=== PATIENT | male | born 1945 | race Caucasian/White ===

== ENCOUNTER → 2018-12-19 | Outpatient (CLI) | payer MEDICARE ==
--- NOTE | 2018-12-19 10:09 | ECHOF ---
Referral Reason:R00.2 Palpitations MEASUREMENTS -------- HEIGHT: 175.3 cm WEIGHT: 77.6 kg BP: RVIDd: 2.5 cm (< 3.3) IVSd: 1.2 cm (0.6 - 1.1) LVIDd: 3.7 cm (3.9 - 5.3) LVPWd: 1.5 cm (0.6 - 1.1) IVSs: 1.7 cm LVIDs: 2.1 cm LVPWs: 1.6 cm LAESV Index (A-L): 24.90 ml/m Ao Diam: 3.9 cm (2.0 - 3.7) AV Cusp: 2.4 cm (1.5 - 2.6) LA Diam: 4.1 cm (2.7 - 3.8) MV EXCURSION: 11.106 mm (> 18.000) MV EF SLOPE: 28 mm/s (70 - 150) EPSS: 1.4 cm MV E Julian: 0.43 m/s MV DecT: 306 ms MV A Julian: 0.80 m/s MV E/A Ratio: 0.54 AR PHT: 799 ms RAP: 5.00 mmHg RVSP: 26.90 mmHg FINDINGS -------- Sinus rhythm. This was a technically good study. The left ventricular size is normal. There is mild concentric left ventricular hypertrophy. Overa ll left ventricular systolic function is normal with, an EF between 55 - 60 %. The right ventricle is normal in size and function. Normal LA size by volume 22+/-6 ml/m2. The right atrium is normal in size. Aortic valve is trileaflet and is mildly thickened. There is mild aortic regurgitation. There is trace mitral regurgitation. Trace tricuspid regurgitation present. The right ventricular systolic pressure, as measured by Dopp ler, is 26.90mmHg. Trace/mild (physiologic) pulmonic regurgitation. The aortic root is mildy dilated. The pericardium is normal. CONCLUSIONS -------- 1. Sinus rhythm. 2. This was a technically good study. 3. The left ventricular size is normal. 4. There is mild concentric left ventricular hypertrophy. 5. Overall left ventricular systolic function is normal with, an EF between 55 - 60 %. 6. The right ventricle is normal in size and function. 7. Normal LA size by volume 22+/-6 ml/m2. 8. The right atrium is normal in size. 9. Aortic valve is trileaflet and is mildly thickened. 10. There is mild aortic regurgitation. 11. There is trace mitral regurgitation. 12. Trace tricuspid regurgitation present. 13. The right ventricular systolic pressure, as measured by Doppler, is 26.90mmHg. 14. Trace/mild (physiologic) pulmonic regurgitation. 15. The aortic root is mildy dilated. 16. The pericardium is normal. HIGH SCHOOL SCIENCE TEACHER: Sara Townsend RDCS
--- NOTE | 2018-12-19 12:17 | EST ---
EXERCISE STRESS AGE: 73 SEX: M HT: 5'9" WT: 171 PROTOCOL: Cardiolite Giovanni Stress Test STAGE: III DURATION OF EXERCISE: 10:17 HEART RATE REST: 60 BLOOD PRESSURE REST: 159/96 MAXIMUM HEART RATE ACHIEVED: 124 MAXIMUM BLOOD PRESSURE: 202/92 85% MPHR: 125 100% MPHR: 147 METS: 9.1 INDICATIONS: Palpitations. CLINICAL INFORMATION: Baseline heart rate is 60 beats per minute. Baseline blood pressure elevated 159/96 mmHg. Baseline 12-lead ECG shows normal sinus rhythm with normal cardiac intervals and appear interval is mildly prolonged. The patient exercised on Giovanni protocol for 10 minutes 17 seconds achieving a peak heart rate of 120 beats per minute, hypertensive response to exercise. Peak blood pressure 202/92 mmHg. He did not complain of chest pain but complained of shortness of breath and tiredness. PVCs were noted during exercise. However, significant horizontal downsloping ST depressions were noted at peak exercise, almost [address]- depression noted. PVCs were noted at recovery and there was a gradual improvement in ST depression. However, it took greater than 4-5 minutes to resolve. IMPRESSION: Abnormal stress test consistent with ischemia and premature ventricular contractions with exercise. Nuclear portion of the stress test will be reported separately. This result was communicated to Dr. Breonna Irvin. MMJERRYL / IJN: [id number] /
--- NOTE | 2018-12-19 13:24 | NM ---
EXAMINATION TYPE: NM stress cardiolite complete DATE OF EXAM: 12/19/2018 COMPARISON: NONE HISTORY: TECHNIQUE: After the intravenous administration of 10.16 mCi Tc 99m Sestamibi - Rest images obtained 45 minutes post injection. The patient exercised using a LEONA protocol and 1 minute prior to peak exercise was injected with 24.7 mCi Tc 99m Sestamibi - Stress images obtained 15 minutes post inject ion. FINDINGS: Targeted heart rate was achieved during performance of the study. Review of stress and rest SPECT lola ges demonstrates no distinct perfusion abnormality. Gated analysis shows normal wall motion with an estimated left ventricular ejection fraction of 68 %. IMPRESSION: No scintigraphic evidence for reversible ischemia
== END | disposition home or self-care (01) ==
LOC: RADNMMAIN 07:57
PROVIDERS: ATTEND Family Medicine
DX: I35.1 Nonrheumatic aortic (valve) insufficiency (principal); I51.7 Cardiomegaly; R94.39 Abnormal result of other cardiovascular function study
CPT/HCPCS: 93017; 93306; 78452; A9500

== ENCOUNTER 2018-12-27 10:43 | Day surgery (SDC) | payer MEDICARE ==
[2018-12-26 10:43] VITALS: BMI 25.2
[~2018-12-27 10:43] MED LIST: ALPRAZolam 0.25 MG TAB PO PRN; ALPRAZolam 0.5 MG TAB PO PRN; ASPIRIN 325 MG TAB PO STA; ATORVASTATIN 80 MG TAB PO STA; NITROGLYCERIN SL TABS 0.4 MG TAB SUBLINGUAL PRN; SODIUM CHLORIDE 0.9% 1,000 ML in EMPTY BAG 1 BAG IV ONE
[2018-12-27] MEDS ORDERED: SODIUM CHLORIDE 0.9% 1,000 ML IV ONE (11:18)
[2018-12-27] MEDS ORDERED: VERAPAMIL 2.5 MG/ML 2 ML AMP ONE (12:10)
[2018-12-27] MEDS ORDERED: LIDOCAINE 1% INJ 10MG/ML (20 ML MDV) ONE (12:10)
[2018-12-27] MEDS ORDERED: HEPARIN SODIUM 1,000 UN/ML (10ML VL) ONE (12:10)
[2018-12-27] MEDS ORDERED: fentaNYL (PF) 50 MCG/ML 2 ML AMP ONE (12:11)
[2018-12-27] MEDS ORDERED: fentaNYL (PF) 50 MCG/ML 2 ML AMP IVP ONE (12:30)
[2018-12-27] MEDS ORDERED: LIDOCAINE 1% INJ 10MG/ML (20 ML MDV) SQ ONE (12:35)
[2018-12-27] MEDS ORDERED: VERAPAMIL SYRINGE (5 MG/10 ML) INTRAARTER ONE (12:37)
[2018-12-27] MEDS ORDERED: HEPARIN SODIUM 1,000 UN/ML (10ML VL) IV ONE (12:40)
[2018-12-27] MEDS ORDERED: IOPAMIDOL-370 125ML BTL INJ ONE (12:47)
[2018-12-27] MEDS ORDERED: RX INFO: IV CONTRAST WAS GIVEN 1 EACH MISC MISCELLANE PRN (13:03)
[2018-12-27] MEDS ORDERED: SODIUM CHLORIDE 0.9% 1,000 ML IV SCH (13:15)
[2018-12-27 15:01] VITALS: RESP 16
--- NOTE | 2018-12-27 17:59 | CC ---
CARDIAC CATHETERIZATION REPORT Mr. Thomas is a 73-year-old male with known history of hypertension, hyperlipidemia, prior history of PCI with stenting of the LAD in 1997 with mild to moderate triple- vessel coronary artery disease by cardiac catheterization in 2005. He has been followed by Dr. You and had abnormal myocardial perfusion imaging recently. In view of that, recommendation was made regarding cardiac catheterization. The procedure, its risks and complications were discussed with the patient, who was in full understanding and agreement. PROCEDURE: Patient was brought to the quality assurance qa lab technician in a fasting, semi-sedated state after receiving fentanyl and Benadryl and achieving a moderate conscious sedated state. Using Xylocaine anesthesia and Seldinger technique, a 6-Stateless sheath was introduced in the right radial artery. Selective right and left coronary angiography was performed using 5-Stateless 3-1/2 bend, right and left Xavi catheters. Multiple views were taken of the arteries, including hemiaxial views. Following that, a 5-Stateless tight pigtail catheter was introduced into the left ventricle and a 30-degree REICH view of the left ventricle was obtained. Following that, catheter and sheath were removed. Hemostasis was obtained with deployment of a TR band. There was no immediate complication. Patient was returned to his room in stable condition. Of note, the patient received 4000 u intravenous heparin as well as intra-arterial verapamil. FINDINGS: LEFT MAIN: This is a large-sized vessel bifurcating into left circumflex, left anterior descending artery. Left main coronary artery has no evidence of high-grade stenosis. LEFT ANTERIOR DESCENDING ARTERY: This is a large-sized vessel. It tapers down in the distal third, giving rise to 3 diagonal branches of small to moderate caliber. The left anterior descending artery is heavily calcified proximally. The stented segment in the proximal area is patent. There is diffuse mild intimal disease throughout the length of the artery with an area of stenosis up to 20% to 30% without any evidence of high-grade stenosis. LEFT CIRCUMFLEX: This is a nondominant vessel giving rise to a large obtuse marginal branch. The left circumflex obtuse marginal branch has a 20% to 30% plaque without any critical stenosis. RIGHT CORONARY ARTERY: This is a calcified vessel, dominant, large in caliber, bifurcating distally into PDA and posterolateral segment and branches. The right PDA reaches toward the inferoapical wall. The right coronary artery prior to the bifurcation has a plaque of up to 40% to 50%. The PDA has a tubular lesion of about 40% to 50%. The rest of the vessel has no high-grade stenosis. LEFT VENTRICULOGRAM: Left ventriculogram was performed in 30-degree REICH view and revealed normal left ventricular size and systolic function. The ejection fraction is 60%. There was no significant mitral regurgitation. HEMODYNAMICS: There was no gradient across the aortic valve. The left ventricular end- diastolic pressure was 12-14 mmHg. CONCLUSION: 1. Patent stent in the LAD. 2. Calcified coronary arteries. 3. Mild to moderate triple-vessel disease. 4. Normal left ventricular size and systolic function. RECOMMENDATION: In view of findings and anatomy, I have recommended continued medical therapy with aggressive coronary risk modifications that have been initiated. Those findings and recommendations were discussed with the patient and his family. They are in full understanding and agreement. The lesion in the right coronary artery looks similar to the images that were obtained in 2006, and there is no significant progression of disease. MMODL / IJN: [id number] / [id number]
[2018-12-27 18:10] VITALS: BP 135/72; PULSE 55
[2018-12-27] MEDS ORDERED: ATORVASTATIN 80 MG TAB PO SCH (21:00)
[2018-12-27] MEDS ORDERED: METOPROLOL TARTRATE 50 MG TAB PO SCH (21:00)
[2018-12-28] MEDS ORDERED: ASPIRIN 81 MG PO SCH (09:00)
[2018-12-28] MEDS ORDERED: HYDROCHLOROTHIAZIDE 25 MG TAB PO SCH (09:00)
== END 2018-12-27 18:10 | disposition home or self-care (01) ==
LOC: CATHCVL 10:43
PROVIDERS: ATTEND Internal Medicine Interventional Cardiology
DX: I25.10 Atherosclerotic heart disease of native coronary artery without angina pectoris (principal); I49.3 Ventricular premature depolarization; R94.39 Abnormal result of other cardiovascular function study; I10 Essential (primary) hypertension; E78.5 Hyperlipidemia, unspecified; Z95.5 Presence of coronary angioplasty implant and graft; Z79.82 Long term (current) use of aspirin; Z79.899 Other long term (current) drug therapy; Z82.49 Family history of ischemic heart disease and other diseases of the circulatory system
CPT/HCPCS: 93458; C1769 ×2; C1894; J2001; J3010; J1644; Q9967